=== PATIENT | male | born 1970 | race Caucasian/White ===

== ENCOUNTER 2017-07-11 11:45 | Emergency (ER) | payer BC, OTHER ==
[2017-07-11] MEDS ORDERED: KETOROLAC TROMETHAMINE 60 MG/2 ML VIAL IM ONE (11:53)
--- NOTE | 2017-07-11 12:46 | ED Physician Documentation ---
Fall - HPI Stated Complaint: Fall Chief Complaint: Fall Onset: today Where: work ([employer]) Context: slipped (on ice) Associated Symptoms:: no loss of consciousness Location of Pain/Injury: R shoulder, other (right ribs) Injury to Right Extremity: shoulder Injury to Left Extremity: none Further Comments: yes (46 year old male patient presents with complaint of right shoulder pain. Patient slipped on ice, hit right shoulder. C/O right shoulder and right rib pain. Denies loc, denies head or neck pain, states "I did not hit my head". No obvious injury or abrasion noted.) - ROS CONST: no problems MS/SKIN/LYMPH: denies: weakness, numbness, neck pain, back pain, ankle swelling , leg swelling EYES/ENT: none CVS/RESP: none GI/: denies: nausea, vomiting - PAST HX Past History: other (HTN, depression, hiatal hernia, hypothyroidism, arthritis, renal calculi, migraine) Allergies/Adverse Reactions: Allergies Allergy/AdvReac Type Severity Reaction Status Date / Time No Known Allergies Allergy Verified 07/11/17 11:56 Home Medications: Ambulatory Orders Medication Instructions Recorded Gabapentin 300 mg PO QID 10/23/12 Hydrochlorothiazide [Hydrodiuril] 25 mg PO QDAY 10/23/12 Meloxicam 15 mg PO QDAY 10/23/12 Metoprolol Tartrate [Lopressor] 50 mg PO Q12H 10/23/12 Omeprazole 20 mg PO BID 10/23/12 Potassium Chloride [K-Dur] 10 meq PO QDAY 10/23/12 Topiramate [Topamax] 50 mg PO BID 10/23/12 Venlafaxine HCl [Effexor CR] 150 mg PO QDAY 10/23/12 Thyroid,Pork [[place] Thyroid] 2 gr PO BID 11/19/14 - SOCIAL HX Smoking History: non-smoker - FAMILY HX Family History: denies: none - VITAL SIGNS Vital Signs: Vital Signs Temp Pulse Resp BP Pulse Ox 98 F 68 18 126/71 95 07/11/17 11:45 07/11/17 11:45 07/11/17 11:45 07/11/17 11:45 07/11/17 11:45 - REVIEWED ASSESSMENTS Nursing Assessment Reviewed: Yes Vitals Reviewed: Yes Progress - Progress Progress: Medicated on arrival with toradol IM Reviewed xray results with patient. Instructed to call ortho in the morning for follow up appointment. Sling applied, increased pain with movement, medicated with nubain IM. Adjusted sling. Patient reports pain improved after nubain and adjustment of sling. Verbalized understanding of discharge instructions. at bedside, verbalized understanding ED Results Lab/Radiology - Radiology Radiology Impressions: Examination: Plain film right clavicle. History: PAIN FROM FALL ON ICE AND LANDED ON RIGHT SIDE (Hx) / FALL; PAIN ( DICOM Hx) / FALL; PAIN (Pt comments) Comparison exams: None available. Findings: 2 views of the right clavicle demonstrates a mildly comminuted fracture involving the mid to distal aspect of the clavicle. One half shaft width displacement. Visualized cortical margins of the ribs, scapula, and humerus appear to be intact. No gross soft tissue abnormality. Impression: Fracture mid to distal right clavicle. Electronically signed on Jul 11, 2017 12:42:44 PM MACHINIST AUTOMOTIVE by: Derek Lu Examination: Plain film right shoulder History: PAIN FROM FALL ON ICE AND LANDED ON RIGHT SIDE (Hx) / FALL; PAIN ( DICOM Hx) / FALL; PAIN (Pt comments) Comparison exams: None provided Findings: 3 views of the right shoulder demonstrates a mildly comminuted fracture involving the mid to distal aspect of the clavicle. One half shaft width displacement. Visualize margins of the scapula, acromion, ribs and proximal humerus are without cortical irregularity. No articular displacement. No overt soft tissue abnormality. Impression: Fracture mid to distal right clavicle. Electronically signed on Jul 11, 2017 12:45:18 PM MACHINIST AUTOMOTIVE by: Derek Lu - Orders Orders: ED Orders Category Date Time Status CLAVICLE COMPLETE [RAD] Stat Exams 07/11/17 Taken SHOULDER 2 VIEWS OR MORE [RAD] Stat Exams 07/11/17 Taken Ketorolac Tromethamine [Toradol] Med 07/11/17 11:53 Discontinued 60 mg IM NOW ONE Fall Physical Exam - Physical Exam General Appearance: moderate distress Head: non-tender, no swelling, no obvious injury Neck: non-tender (negative Nexus criteria), painless ROM, trachea midline Eye: JUAN J, EOMI, lids & conjunct. nml ENT: nml external inspection, no dental injury Resp/CVS: chest non-tender, no ecchymosis, breath sounds nml, no resp. distress , heart sounds nml, rib tenderness (along right ribs 8-9) Abdomen: soft, no organomegaly, normal bowel sounds, no abdominal bruit, no distension Neuro: oriented x3, CN's nml as tested, sensation nml, motor nml, mood/affect nml, director of maternity services nml, reflexes nml, director of maternity services symmetrical Skin: color nml, no rash, nml palp., dry Back: normal inspection, no CVA tenderness Extremities: pelvis stable, hips non-tender, no pedal edema, nml color/temp, other (will not move right arm due to pain, right clavicle area tender to palpation) Joint: Nml gait/weight bearing, limited ROM (right shoulder) - [place] Coma Score Eyes Open: Spontaneous Speech: Oriented Motor: Obeys Commands Discharge Clincal Impression: Clavicle fracture Qualifiers: Encounter type: initial encounter Clavicle location: shaft Fracture type: closed Fracture alignment: displaced Laterality: right Qualified Code(s): S42.021A - Displaced fracture of shaft of right clavicle, initial encounter for closed fracture Referrals: Nargis Mcrae MD [Primary Care Provider] - 2 Days Additional Instructions: Rest ICE!! for 20-30 minutes at least 5 times a day Wear sling at all times. May remove to shower. Do not lift ANYTHING with right arm. Call orthopedics in the morning for a follow up appointment. Tylenol as needed for pain, may alternate with ibuprofen as needed. Limit your acetaminophen to 4G in 24 hours. Condition: Stable Disposition: 01 HOME, SELF-CARE Decision to Admit: NO Decision Time: 13:40
[2017-07-11] MEDS ORDERED: NALBUPHINE HCL 10 MG/1 ML IM ONE (13:37)
[2017-07-11 13:52] VITALS: BP 120/68
--- NOTE | 2017-07-12 06:57 | Diagnostic Imaging Report ---
DULCE SCHNEIDER (PERIOPERATIVE MANAGER) - ER [id number] [facility].[address] [id number] Report Submission Date: Jul 11, 2017 12:42:44 PM CYLINDER DYER Patient Study Name: YANG RIVERA Date: Jul 11, 2017 12:22:41 PM CYLINDER DYER Modality Type: CR Gender: M Description: SHOULDER : 68 Institution: Physician: DULCE SCHNEIDER) - ER Examination: Plain film right clavicle. History: PAIN FROM FALL ON ICE AND LANDED ON RIGHT SIDE (Hx) / FALL; PAIN ( DICOM Hx) / FALL; PAIN (Pt comments) Comparison exams: None available. Findings: 2 views of the right clavicle demonstrates a mildly comminuted fracture involving the mid to distal aspect of the clavicle. One half shaft width displacement. Visualized cortical margins of the ribs, scapula, and humerus appear to be intact. No gross soft tissue abnormality. Impression: Fracture mid to distal right clavicle. Electronically signed on Jul 11, 2017 12:42:44 PM CYLINDER DYER by: Derek DUNN
--- NOTE | 2017-07-12 06:57 | Diagnostic Imaging Report ---
DULCE SCHNEIDER (BOOT LINER MAKER) - ER [facility] [address] [facility] [address] [address] Report Submission Date: Jul 11, 2017 1:56:57 PM DIRECTOR OF USER EXPERIENCE Patient Study Name: YANG RIVERA Date: Jul 11, 2017 1:20:43 PM DIRECTOR OF USER EXPERIENCE Modality Type: CR Gender: M Description: CHEST : 68 Institution: [facility] Physician: DULCE SCHNEIDER) - ER Examination: Plain film right ribs History: RIGHT SIDED RIB PAIN S/P FALL ON ICE ON 07/11/2017 (Hx) / RT SIDE RIB PAIN S/P FALL (DICOM Hx) / RT SIDE RIB PAIN S/P FALL (Pt comments) Findings: 3 views of the right ribs demonstrates normal cortical margins. No fracture or dislocation. Underlying parenchymal without abnormality. Fracture involving the mid to distal clavicle. Impression: No rib fracture/abnormality. Fracture of mid to distal clavicle - correlate with dedicated clavicular imaging. Electronically signed on Jul 11, 2017 1:56:57 PM DIRECTOR OF USER EXPERIENCE by: Derek DUNN
--- NOTE | 2017-07-12 07:00 | Diagnostic Imaging Report ---
DULCE SCHNEIDER (MAGAZINE KEEPER) - ER [facility] [address] [address] Report Submission Date: Jul 11, 2017 12:45:18 PM CENTRAL OFFICE EQUIPMENT ENGINEER Patient Study Name: YANG RIVERA Date: Jul 11, 2017 12:10:03 PM CENTRAL OFFICE EQUIPMENT ENGINEER Modality Type: CR Gender: M Description: SHOULDER : 68 Institution: [facility] Physician: DULCE SCHNEIDER) - ER Examination: Plain film right shoulder History: PAIN FROM FALL ON ICE AND LANDED ON RIGHT SIDE (Hx) / FALL; PAIN ( DICOM Hx) / FALL; PAIN (Pt comments) Comparison exams: None provided Findings: 3 views of the right shoulder demonstrates a mildly comminuted fracture involving the mid to distal aspect of the clavicle. One half shaft width displacement. Visualize margins of the scapula, acromion, ribs and proximal humerus are without cortical irregularity. No articular displacement. No overt soft tissue abnormality. Impression: Fracture mid to distal right clavicle. Electronically signed on Jul 11, 2017 12:45:18 PM CENTRAL OFFICE EQUIPMENT ENGINEER by: Derek DUNN
== END 2017-07-11 13:50 | disposition home or self-care (01) ==
LOC: ED 11:45
DX: S42.021A Displaced fracture of shaft of right clavicle, initial encounter for closed fracture (principal); W00.0XXA Fall on same level due to ice and snow, initial encounter; Y93.9 Activity, unspecified; Y92.9 Unspecified place or not applicable; Y99.9 Unspecified external cause status
CPT/HCPCS: 71100; 73000; 73030; J1885; J2300; 99282; 99283